=== PATIENT | male | born 1995 | race Native Hawaiian/Other Pacific Islander ===

== ENCOUNTER 2018-06-14 20:34 | Emergency (ER) | payer OTHER ==
[~2018-06-14] VITALS: Ht 182.9 cm; Wt 68.7 kg
[2018-06-14 21:10] VITALS: BP 121/72; TEMP 98.2
== END 2018-06-14 21:15 | disposition home or self-care (01) ==
LOC: ED 20:34
DX: M67.431 Ganglion, right wrist (principal)
CPT/HCPCS: 99282

== ENCOUNTER 2019-06-29 18:44 | Emergency (ER) | payer OTHER ==
[~2019-06-29] VITALS: Ht 182.9 cm; Wt 68.5 kg
[2019-06-29 19:25] VITALS: BP 147/98; TEMP 97.3
== END 2019-06-29 19:25 | disposition home or self-care (01) ==
LOC: ED 18:44
DX: M67.431 Ganglion, right wrist (principal)
CPT/HCPCS: 99282